=== PATIENT | male | born 1970 | race Two or more races ===

== ENCOUNTER 2022-02-12 23:59 | Emergency (ER) | payer SELFPAY ==
[~2022-02-12] VITALS: Ht 165.1 cm; Wt 100.0 kg
[2022-02-13 00:16] VITALS: BP 170/101
== END 2022-02-13 06:37 | disposition left against medical advice (07) ==
LOC: ER 02-13 00:02
DX: K08.89 Other specified disorders of teeth and supporting structures (principal); R22.0 Localized swelling, mass and lump, head; R13.10 Dysphagia, unspecified; Z53.21 Procedure and treatment not carried out due to patient leaving prior to being seen by health care provider